=== PATIENT | female | born 1965 | race Caucasian/White ===

== ENCOUNTER 2022-06-05 08:48 | Emergency (ER) | payer MEDICAID, OTHER ==
[~2022-06-05] VITALS: Ht 152.4 cm; Wt 72.6 kg
[2022-06-05] MEDS ORDERED: ACETAMINOPHEN 650MG/20.3ML UDC PO ONE (09:30)
[2022-06-05] MEDS ORDERED: METHOCARBAMOL 500MG TABLET PO ONE (09:30)
[2022-06-05] MEDS ORDERED: METH-653 MT (10:53)
[2022-06-05] MEDS ORDERED: IBUP-2028 MT (10:53)
[2022-06-05 11:20] VITALS: BP 144/77
== END 2022-06-05 14:51 | disposition home or self-care (01) ==
LOC: ER 08:48
DX: R51.9 Headache, unspecified (principal); M79.18 Myalgia, other site; Y08.89XA Assault by other specified means, initial encounter; Y93.89 Activity, other specified; Y92.89 Other specified places as the place of occurrence of the external cause; Z88.0 Allergy status to penicillin
CPT/HCPCS: 99284

== ENCOUNTER 2023-12-07 20:07 | Emergency (ER) | payer MEDICAID, OTHER ==
[~2023-12-07] VITALS: Ht 152.4 cm; Wt 60.0 kg
[~2023-12-07 20:07] MED LIST: IBUP-2028 MT; METH-653 MT
[2023-12-07 20:53] VITALS: TEMP 98.4; O2SAT 99
[2023-12-08] MEDS ORDERED: NAPR-1176 MT (00:17)
[2023-12-08] MEDS ORDERED: KETOROLAC 15MG/ML VIAL IM NR (01:00)
[2023-12-08 01:02] VITALS: BP 154/75; PULSE 68; RESP 18
[2023-12-08] MEDS: KETOROLAC 15MG/ML VIAL IM ONE (01:02)
== END 2023-12-08 01:14 | disposition home or self-care (01) ==
LOC: ER 20:45
DX: T75.4XXA Electrocution, initial encounter (principal); Z88.0 Allergy status to penicillin; X58.XXXA Exposure to other specified factors, initial encounter; Y93.89 Activity, other specified; Y92.89 Other specified places as the place of occurrence of the external cause; Y99.8 Other external cause status
CPT/HCPCS: 93005; 99283; J1885; Z7610